=== PATIENT | male | born 1965 | race Caucasian/White ===

== ENCOUNTER → 2018-08-23 10:07 | Outpatient (CLI) | payer BC, SELFPAY ==
--- NOTE | 2018-08-23 10:13 | XR_ITS ---
XR chest 2V HISTORY: ITS.REASON: POSTERIOR THORACIC PAIN WITH BREATHING ORDERING PHYSICIAN: Karthik Ornelas PATIENT AGE: 53 years COMPARISON: None FINDINGS: The cardiomediastinal silhouette and pulmonary vascularity are within normal limits. There is an area of increased density overlying the inferior aspect of the T7 vertebral body. This is nonspecific and could be due to a a sclerotic lesion at T7 or due to overlying adjacent lung parenchymal pathology. CT of the chest with contrast may provide further evaluation. The remaining lungs are clear. IMPRESSION: 1. There is an area of increased density overlying the inferior aspect of the T7 vertebral body. This is nonspecific and could be due to a a sclerotic lesion at T7 or due to overlying adjacent lung parenchymal pathology. CT of the chest with contrast may provide further evaluation. 2. Otherwise negative chest
== END ==
PROVIDERS: PCP Internal Medicine; Visit Provider Internal Medicine
DX: R07.89 Other chest pain (principal); M54.6 Pain in thoracic spine
CPT/HCPCS: 71046

== ENCOUNTER → 2018-09-14 09:18 | Outpatient (CLI) | payer BC, SELFPAY ==
--- NOTE | 2018-09-14 09:20 | CT_ITS ---
CT chest w con HISTORY: Pain, abnormal chest x-ray, possible sclerotic lesion of T7 ITS.REASON: BACK PAIN ORDERING PHYSICIAN: Karthik Ornelas PATIENT AGE: 53 years COMPARISON: None Technique: Contrast Used:75ml Optiray 350 Axial images were obtained. Sagittal, and coronal reformatted images are also generated and reviewed. All CT scans at the facility use one or more dose reduction, viz: automated exposure control, ma/kV adjustment per patient size (including targeted exams where dose is matched to indication, i.e. head), or iterative reconstruction technique. FINDINGS: HEART: Unremarkable. Normal heart size. No significant pericardial effusion. MEDIASTINAL AND HILAR STRUCTURES: No mediastinal or hilar mass evident. No dominant adenopathy. PULMONARY ARTERIES: No pulmonary embolus evident. AORTA: No acute finding. No thoracic aortic aneurysm or dissection evident LUNGS: There is a 3 mm nodule along the right upper lobe posteriorly along the major fissure. There is some minimal nodularity in the subpleural region of the right lower lobe and left lower lobe nonspecific. A subpleural nodule is present in the left lower lobe at 6 mm. An additional subpleural nodules present in the left lower lobe at 4 mm. PLEURAL SPACES: No significant effusion. No evidence of pneumothorax. BONY STRUCTURES: No sclerotic lesions are evident. Specifically, there is no evidence of the sclerotic lesion at T7. There is mild hypertrophy of the costovertebral joint bilaterally at this level likely accounting for the radiographic appearance on the chest x-ray. LYMPH NODES: No enlarged lymph nodes evident UPPER ABDOMEN: There is a 16 mm left renal cyst ADDITIONAL FINDINGS: No other significant abnormalities IMPRESSION: No acute finding. There are a few scattered noncalcified pulmonary nodules the largest in the left lower lobe 6 mm. Consider 6-12 month follow-up. Mild hypertrophic change of the costovertebral joint at T7 likely accounting for the radiographic abnormality
== END ==
PROVIDERS: PCP Internal Medicine; Visit Provider Internal Medicine
DX: M54.5 Low back pain (principal)
CPT/HCPCS: 71260; Q9967

== ENCOUNTER → 2018-12-06 09:42 | Outpatient (CLI) | payer BC, SELFPAY ==
[2018-12-06 10:05] LABS: Basophils # 0.1 K/mm3 (0-0.2); Basophils % 1.4 % (0.1-2.0); Eosinophils # 0.4 K/mm3 (0.0-0.4); Eosinophils % 8.7 % (0.1-12.0); Hematocrit 44.7 % (42.0-52.0); Hemoglobin 15.3 g/dL (14.1-18.0); Lymphocytes # 1.7 K/mm3 (0.7-4.5); Lymphocytes % 34.2 % (10-50); Mean Corpuscular HGB Conc 34.2 g/dL (31.8-35.4); Mean Corpuscular Hemoglobin 31.5 pg (27.0-31.2); Mean Corpuscular Volume 92.2 fl (80-94); Monocytes # 0.2 K/mm3 (0.1-1.0); Monocytes % 4.3 % (1.7-9.3); Neutrophils # 2.6 K/mm3 (1.8-7.8); Neutrophils % 51.3 % (37.0-80.0); Platelet Count 247 K/mm3 (142-424); Red Blood Count 4.85 M/mm3 (4.60-6.20); Red Cell Distribution Width 12.7 % (11.5-17.5); White Blood Count 5.1 K/mm3 (4.8-10.8)
[2018-12-06 10:50] LABS: Alanine Aminotransferase 27 U/L (12-78); Albumin Level 3.9 gm/dL (3.4-5.0); Albumin/Globulin Ratio 1.3 (1.1-1.8); Alkaline Phosphatase 90 U/L (46-116); Anion Gap 12.9 mEq/L (5-15); Aspartate Amino Transferase 11 U/L (15-37); Bilirubin,Total 0.5 mg/dL (0.2-1.0); Blood Urea Nitrogen 9 mg/dL (7-18); Calcium 9.2 mg/dL (8.5-10.1); Carbon Dioxide 28 mmol/L (21.0-32.0); Chloride 106 mmol/L (98-107); Creatinine,Serum 0.85 mg/dL (0.70-1.30); Estimated Glomerular Filt Rate 94 ml/min (>60); GFR (African American) 114 ML/MIN (>60); Glucose 97 mg/dL (74-106); Potassium 3.9 mmoL/L (3.5-5.1); Sodium 143 mmol/L (136-145); Total Protein,Serum 6.9 gm/dL (6.4-8.2)
[2018-12-08 08:17] LABS: Deamidated Gliadin Abs, IgA 4 units (0-19); Deamidated Gliadin Abs, IgG 3 units (0-19); Endomysial IgA Antibody Negative (Negative); Tissue Transglutaminase IgA Ab <2 U/mL (0-3); Tissue Transglutaminase IgG Ab <2 U/mL (0-5)
[2018-12-08 08:25] LABS: Reticulin IgA Antibody Negative titer (Neg:<1:2.5)
[2018-12-09 11:01] LABS: Saccharomyces cerevisiae, IgA 36.2 Units (0.0-24.9); Saccharomyces cerevisiae, IgG 30.1 Units (0.0-24.9)
== END ==
PROVIDERS: Visit Provider Nurse Practitioner Family
DX: R19.4 Change in bowel habit (principal); R19.7 Diarrhea, unspecified; R10.84 Generalized abdominal pain
CPT/HCPCS: 36415; 80053; 83516; 85025; 86255; 86256; 86671

== ENCOUNTER → 2018-12-10 10:39 | Outpatient (CLI) | payer BC, SELFPAY ==
[2018-12-10 10:46] LABS: Adenovirus F 40/41, stool Not Detected (NotDetected); Astrovirus Not Detected (NotDetected); Campylobacter Not Detected (NotDetected); Clostridium Difficile A/B, PCR Not Detected (NotDetected); Cryptosporidium Not Detected (NotDetected); Cyclospora Cayetanesis Not Detected (NotDetected); Entamoeba histolytica Not Detected (NotDetected); Enteroaggregative E coli Not Detected (NotDetected); Enteropathogenic E coli Not Detected (NotDetected); Enterotoxigenic E coli Not Detected (NotDetected); Giardia lamblia Not Detected (NotDetected); Norovirus Not Detected (NotDetected); Plesimonas Shigalloides, PCR Not Detected (NotDetected); Rotavirus A Not Detected (NotDetected); Salmonella, PCR Not Detected (NotDetected); Sapovirus Not Detected (NotDetected); Shiga-like toxin E coli Not Detected (NotDetected); Shigella Enterovasive E coli Not Detected (NotDetected); Vibrio Cholerae Not Detected (NotDetected); Vibrio, PCR Not Detected (NotDetected); Yersinia Entercolitica, PCR Not Detected (NotDetected)
== END ==
PROVIDERS: Visit Provider Nurse Practitioner Family
DX: R19.4 Change in bowel habit (principal); R19.7 Diarrhea, unspecified; R10.84 Generalized abdominal pain
CPT/HCPCS: 87507

== ENCOUNTER → 2018-12-28 08:33 | Outpatient (CLI) | payer BC, SELFPAY ==
--- NOTE | 2018-12-28 08:40 | FL_ITS ---
PROCEDURE: FL SMALL BOWEL FOLLOW THROUGH CLINICAL INDICATION: DIARRHEA,ABD PAIN,N/V COMPARISON: No exams were available for comparison FINDINGS: Fluoroscopy time: 54 seconds. 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 Unremarkable appearing small bowel. No obstruction, mucosal abnormalities, or strictures evident. Spot views of the terminal ileum are unremarkable. There is normal transit time. IMPRESSION: Negative small bowel series Dictated by: Toan Brown MD 12/29/2018 15:24 Electronically signed by Toan Brown MD in [place] 12/29/2018 15:24
== END ==
PROVIDERS: PCP Internal Medicine; Visit Provider Nurse Practitioner Family
DX: R19.7 Diarrhea, unspecified (principal); R10.84 Generalized abdominal pain; R11.2 Nausea with vomiting, unspecified
CPT/HCPCS: 74250

== ENCOUNTER → 2019-01-03 14:08 | Outpatient (CLI) | payer BC, SELFPAY ==
--- NOTE | 2019-01-03 14:10 | US_ITS ---
PROCEDURE: US ABDOMEN COMPLETE CLINICAL INDICATION: EPIGASTRIC PAIN, N/V COMPARISON: CT ABDOMEN PELVIS WO CON from 11/16/2018 FINDINGS: PANCREAS: Unremarkable. No obvious mass or abnormal fluid collection. No ductal dilatation LIVER: No focal liver lesions demonstrated. Homogeneous echogenicity. No intrahepatic biliary ductal dilatation evident. There is appropriate direction of blood flow within a non dilated portal vein. Increased echogenicity of the liver consistent with hepatic steatosis RIGHT KIDNEY: Unremarkable. Normal size and echogenicity. No hydronephrosis LEFT KIDNEY: There is a small left renal cyst 14 mm. GALLBLADDER: Gallbladder sludge is present. No shadowing stones, gallbladder wall thickening, pericholecystic fluid, or biliary dilatation. Common bile duct is 3 mm. AORTA: No evidence of aneurysmal dilatation. SPLEEN: Unremarkable. Normal size and echogenicity ASCITES: None demonstrated. IMPRESSION: 1. Gallbladder sludge. No stones, wall thickening, or biliary dilatation. 2. Fatty liver. 3. Left renal cyst Dictated by: Toan Brown MD 01/03/2019 15:13 Electronically signed by Toan Brown MD in [facility] 01/03/2019 15:13
== END ==
PROVIDERS: PCP Internal Medicine; Visit Provider Internal Medicine
DX: R10.13 Epigastric pain (principal); R11.2 Nausea with vomiting, unspecified
CPT/HCPCS: 76700

== ENCOUNTER → 2019-01-11 10:05 | Outpatient (CLI) | payer BC, SELFPAY ==
--- NOTE | 2019-01-11 10:12 | NM_ITS ---
PROCEDURE: NM HEPATOBILIARY W PHARM CLINICAL INDICATION: RENAL CYST,EPIGASTRIC PAIN Epigastric pain COMPARISON: US ABDOMEN COMPLETE from 01/03/2019 TECHNIQUE: DOSE: 8.6 mCi technetium Choletec. 2 mcg of CCK. No pain reported with CCK infusion FINDINGS: Homogeneous activity is present within the hepatic parenchyma. Activity is present in the gallbladder by 15 minutes. Activity is present in the small bowel by 10 minutes. The gallbladder ejection fraction is calculated to be 81 percent. CCK-The patient did not report pain or other symptoms during CCK infusion. IMPRESSION: Unremarkable hepatobiliary scan with normal gallbladder ejection fraction Dictated by: Toan Brown MD 01/11/2019 20:29 Electronically signed by Toan Brown MD in [facility] 01/11/2019 20:29
--- NOTE | 2019-01-11 10:51 | HMH.ITSHM ---
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 []LISINOPRIL ACID RELUX MED ANXIETY MED
== END ==
PROVIDERS: PCP Internal Medicine; Visit Provider Internal Medicine
DX: R10.13 Epigastric pain (principal); R11.2 Nausea with vomiting, unspecified; N28.1 Cyst of kidney, acquired
CPT/HCPCS: 78227; A9537; J2805

== ENCOUNTER → 2019-01-31 08:43 | Outpatient (POV) | payer BC, SELFPAY | PROVIDERS: Visit Provider Nurse Practitioner Family | DX: Z00.00 Encounter for general adult medical examination without abnormal findings (principal) ==

== ENCOUNTER → 2019-07-25 15:20 | Outpatient (CLI) | payer BC, SELFPAY ==
--- NOTE | 2019-07-25 15:27 | XR_ITS ---
PROCEDURE: XR HIP LT 2-3V W/PELVIS CLINICAL INDICATION: LEFT HIP PAIN COMPARISON: No exams were available for comparison FINDINGS: There are mild osteoarthritic changes of both hips. There is faint subcortical lucency of the left femoral head which may be seen with avascular necrosis. MRI may provide further evaluation. No acute fracture or dislocation. IMPRESSION: Mild osteoarthritis of the left hip with possible avascular necrosis. Consider MRI further evaluation. Dictated by: Toan Brown MD 07/25/2019 15:53 Electronically signed by Toan Brown MD in [facility] 07/25/2019 15:53
== END ==
PROVIDERS: PCP Internal Medicine; Visit Provider Internal Medicine
DX: M25.552 Pain in left hip (principal)
CPT/HCPCS: 73502

== ENCOUNTER → 2020-04-30 13:47 | Outpatient (POV) | payer BC, SELFPAY | PROVIDERS: Visit Provider Nurse Practitioner Family | DX: Z00.00 Encounter for general adult medical examination without abnormal findings (principal) ==

== ENCOUNTER → 2020-08-30 10:37 | Outpatient (CLI) | payer BC, SELFPAY ==
[2020-08-30 11:34] LABS: Alanine Aminotransferase 28 U/L (12-78); Albumin Level 4.2 g/dl (3.5-5.0); Alkaline Phosphatase 80 U/L (38-126); Aspartate Amino Transferase 26 U/L (17-59); Bilirubin,Direct 0.4 mg/dl (0.0-0.4); Bilirubin,Indirect 0.2 mg/dL (0.0-0.9); Bilirubin,Total 0.6 mg/dl (0.2-1.3); Bilirubin,Unconjugated 0.2 mg/dL (0.0-1.1); Total Protein,Serum 6.9 g/dl (6.3-8.2)
== END ==
PROVIDERS: Visit Provider Nurse Practitioner
DX: B35.1 Tinea unguium (principal)
CPT/HCPCS: 36415; 80076

== ENCOUNTER → 2020-09-19 11:21 | Outpatient (CLI) | payer BC, SELFPAY ==
[2020-09-19 12:23] LABS: Blood Urea Nitrogen 10 mg/dl (9-20); Estimated Glomerular Filt Rate 100 ml/min (>60); GFR (African American) 121 ML/MIN (>60)
== END ==
PROVIDERS: Visit Provider Internal Medicine
DX: R91.1 Solitary pulmonary nodule (principal)
CPT/HCPCS: 36415; 82565; 84520

== ENCOUNTER → 2020-09-28 12:37 | Outpatient (CLI) | payer BC, SELFPAY ==
--- NOTE | 2020-09-28 12:45 | CT_ITS ---
PROCEDURE: CT CHEST W CON CLINCAL INDICATION: F/U LUNG NODULE COMPARISON: CT CT CHEST W CON from 09/14/2018 TECHNIQUE: IV Contrast: 75ml Isovue 370 Axial images obtained with sagittal and coronal reformats. All CT scans at the facility use one or more dose reduction, viz: automated exposure control, ma/kV adjustment per patient size (including targeted exams where dose is matched to indication, i.e. head), or iterative reconstruction technique. FINDINGS: HEART AND MEDIASTINAL STRUCTURES: No mediastinal or hilar mass. No adenopathy. No evidence of aortic aneurysm, dissection, or central pulmonary embolus. Small left hilar lymph node is stable. LUNGS AND PLEURAL SPACES: No change subpleural 6 mm and 4 mm subpleural nodules in the left lower lobe. No new nodules evident. BONY STRUCTURES: No acute bony abnormalities apparent. UPPER ABDOMEN: Unremarkable. ADDITIONAL FINDINGS: Stable 14 mm cyst in the upper pole of the left kidney. IMPRESSION: No change small lower upper lobe pulmonary nodules No acute finding Dictated by: Toan Brown MD 10/01/2020 10:58 Toan Brown MD in [place] 10/01/2020 10:58
== END ==
PROVIDERS: PCP Internal Medicine; Visit Provider Internal Medicine
DX: R91.1 Solitary pulmonary nodule (principal)
CPT/HCPCS: 71260; Q9967

== ENCOUNTER → 2020-10-29 10:57 | Outpatient (POV) | payer BC, SELFPAY | PROVIDERS: Visit Provider Nurse Practitioner Family | DX: Z00.00 Encounter for general adult medical examination without abnormal findings (principal) ==

== ENCOUNTER → 2021-03-05 15:11 | Outpatient (CLI) | payer BC, SELFPAY | PROVIDERS: Visit Provider Nurse Practitioner | DX: Z20.822 Contact with and (suspected) exposure to COVID-19 (principal) | CPT/HCPCS: C9803; U0003; U0005 ==

== ENCOUNTER → 2021-03-12 16:05 | Outpatient (CLI) | payer BC, SELFPAY | PROVIDERS: PCP Internal Medicine; Visit Provider Nurse Practitioner | DX: Z20.822 Contact with and (suspected) exposure to COVID-19 (principal) | CPT/HCPCS: C9803; U0003; U0005 ==

== ENCOUNTER → 2021-12-12 08:41 | Outpatient (CLI) | payer BC, MEDICARE, SELFPAY ==
[2021-12-12 09:14] LABS: Basophils # 0.1 K/mm3 (0-0.2); Basophils % 1.6 % (0.1-2.0); Eosinophils # 0.7 K/mm3 (0.0-0.4); Eosinophils % 11.9 % (0.1-12.0); Hematocrit 43.1 % (42.0-52.0); Hemoglobin 14.9 g/dL (14.1-18.0); Lymphocytes # 2.1 K/mm3 (0.7-4.5); Lymphocytes % 36.1 % (10-50); Mean Corpuscular HGB Conc 34.6 g/dL (31.8-35.4); Mean Corpuscular Hemoglobin 32.1 pg (27.0-31.2); Mean Corpuscular Volume 92.7 fl (80-94); Mean Platelet Volume 8.4 fl (7.4-10.4); Monocytes # 0.2 K/mm3 (0.1-1.0); Neutrophils # 2.8 K/mm3 (1.8-7.8); Neutrophils % 46.4 % (37.0-80.0); Platelet Count 277 K/mm3 (142-424); Red Blood Count 4.65 M/mm3 (4.60-6.20); Red Cell Distribution Width 13.1 % (11.5-17.5); White Blood Count 5.9 K/mm3 (4.8-10.8)
[2021-12-12 09:30] LABS: Alanine Aminotransferase 22 U/L (12-78); Albumin/Globulin Ratio 1.7 (1.1-1.8); Alkaline Phosphatase 96 U/L (38-126); Aspartate Amino Transferase 24 U/L (17-59); Bilirubin,Total 0.5 mg/dl (0.2-1.3); Blood Urea Nitrogen 10 mg/dl (9-20); Calcium 8.8 mg/dl (8.4-10.2); Carbon Dioxide 29 mmol/L (22.0-30.0); Chloride 105 mmol/L (98-107); Chol/HDL Ratio 4.8 (1-3.5); Cholesterol 174 mg/dl (140-200); Estimated Glomerular Filt Rate 87 ml/min (>60); GFR (African American) 105 ML/MIN (>60); Globulin 2.4 g/dL (1.3-3.2); Glucose 96 mg/dl (74-100); HDL Cholesterol 36 mg/dl (40-60); Sodium 142 mmol/L (136-145); Total Protein,Serum 6.4 g/dl (6.3-8.2); Triglycerides 82 mg/dl (30-150); VLDL Cholesterol 16 mg/dL (0-40)
[2021-12-12 09:41] LABS: Direct LDL Cholesterol 116.68 mg/dL (100-129)
[2021-12-12 10:01] LABS: Prostate Specific Ag Screen 1.5 ng/ml (0.0-4.0); Thyroid Stimulating Hormone 2.22 uIU/mL (0.465-4.68)
[2021-12-12 10:11] LABS: Erythrocyte Sedimentation Rate 12 mm/hr (0-20)
[2021-12-12 10:29] LABS: Anion Gap 12.1 mEq/L (5-15)
[2021-12-12 10:36] LABS: Vitamin B12 476 pg/mL (239-931)
[2021-12-12 10:38] LABS: Free T4 (Free Thyroxine) 0.78 ng/dl (0.78-2.19)
[2021-12-12 11:21] LABS: Potassium 4.1 mmoL/L (3.5-5.1)
== END ==
PROVIDERS: PCP Internal Medicine; Visit Provider Internal Medicine
DX: I10 Essential (primary) hypertension (principal); E78.5 Hyperlipidemia, unspecified; M54.6 Pain in thoracic spine; R20.2 Paresthesia of skin; N40.1 Benign prostatic hyperplasia with lower urinary tract symptoms; Z12.5 Encounter for screening for malignant neoplasm of prostate
CPT/HCPCS: 36415; 80053; 80061; 82607; 82746; 84439; 84443; 85025; 85651; G0103

== ENCOUNTER 2022-03-07 16:11 | Emergency (ER) | payer BC, SELFPAY ==
[2022-03-07 16:25] VITALS: BP 146/92; PULSE 101; RESP 19; TEMP 36.9; O2SAT 98; BMI 27.2
--- NOTE | 2022-03-07 16:36 | EXP.UTC ---
Discharge Plan Disposition Patient Disposition: Home, Self-Care Condition: Good Prescriptions Prescriptions: New prednisone [prednisone] 20 mg tablet 20 mg PO BID 5 Days Qty: 10 0RF benzonatate 100 mg capsule 100 mg PO TID PRN (Reason: cough) Qty: 30 0RF amoxicillin-pot clavulanate 875-125 mg Tablet 1 tab PO Q12H Qty: 20 0RF guaifenesin [Mucinex] 600 mg tablet extended release 12hr 600 mg PO BID PRN (Reason: cough) Qty: 20 0RF No Action lisinopril 20 tablet 20 mg PO DAILY pantoprazole 40 MG tablet,delayed release (DR/EC) 40 mg PO DAILY albuterol sulfate [ProAir HFA] 108 HFA aerosol inhaler 108 mcg inhalation DAILY duloxetine 30 MG capsule,delayed release(DR/EC) 30 mg PO DAILY Referrals Follow up/Referrals: Karthik Ornelas MD [Primary Care Provider] - See instructions Activity Restrictions/Add. Instructions Additional Instructions/Restrictions: Start antibiotic today. Be sure to complete entire prescription even if feeling better Monitor temp. Tylenol every 4 hours as needed and / or ibuprofen every 6 hours as needed ( As long as your primary care physician has told you that it ok to take both. For fever/aches/pains ER if no less than 101 despite Tylenol or Motrin Humidifier/vaporizer or hot steamy shower Inhaler every 4-6 hours as needed like we discussed. If unsure how to use it, ask pharmacist to demonstrate how. Should help open airways and improve cough, wheezing, and shortness of breath Mucinex during the day for your cough and cough suppressant only at night. Be sure to drink lots of water. *Tessalon Perles will not cause drowsiness but use at bedtime to help stop cough so that you may get some rest. *Start steroid today. Helps with inflammation therefore, cough and wheezing. Follow directions on the package. Reviewed side effects. Patient reports taking them before. Follow up IMMEDIATELY for new or worsening of symptoms OR no noticeable improvement over the next 48-72 hours. 911 immediately for any life threatening symptoms such as chest pain or difficulty breathing Clinical Impressions Clinical Impression: Sinusitis, Bronchitis Stand Alone Forms Stand Alone Forms: Work/School Release Instructions Patient Instructions: DI for Sinusitis, DI for Acute Bronchitis, Cough Discharge ED Provider: Geeta EppsH UTC HPI General Stated complaint: cough MO Time Seen by Provider: 03/07/22 16:36 History of Present Illness Provider Complaint: Patient states that he has been having cough, headache head and chest congestion that has continued to get worse States that today his cough was getting worse so he came in to get checked Related Data Home Medications Medication Instructions Recorded Confirmed albuterol sulfate 90 mcg/actuation 108 mcg inhalation DAILY Asthma 06/11/17 02/04/19 aerosol inhaler (ProAir HFA) duloxetine 30 mg capsule,delayed 30 mg PO DAILY Anxiety 06/11/17 02/04/19 release lisinopril 20 mg tablet 20 mg PO DAILY Hypertension 06/11/17 03/07/22 pantoprazole 40 mg tablet,delayed 40 mg PO DAILY STOMACH 06/11/17 02/04/19 release Previous Rx's Medication Instructions Recorded amoxicillin 875 mg-potassium 1 tab PO Q12H #20 tabs 03/07/22 clavulanate 125 mg tablet benzonatate 100 mg capsule 100 mg PO TID PRN cough #30 caps 03/07/22 guaifenesin 600 mg tablet, 600 mg PO BID PRN cough #20 tabs 03/07/22 extended release 12 hr (Mucinex) prednisone 20 mg tablet 20 mg PO BID 5 days #10 tabs 03/07/22 Allergies Allergy/AdvReac Type Severity Reaction Status Date / Time morphine Allergy Nausea Verified 02/04/19 12:09 [facility] Disclaimer: The information contained in this section may have been updated after the patient was seen, as this information can be updated by other users. Medical History (Updated 03/07/22 @ 16:49 by Geeta Epps APRN) History of gastroe
[2022-03-07 16:47] VITALS: BP 146/92; PULSE 101; RESP 19; TEMP 36.9; O2SAT 98
== END 2022-03-07 16:50 | disposition home or self-care (01) ==
PROVIDERS: Emergency Provider Nurse Practitioner; PCP Internal Medicine
DX: J32.9 Chronic sinusitis, unspecified (principal); J40 Bronchitis, not specified as acute or chronic
CPT/HCPCS: 99212; 99214; G0463

== ENCOUNTER → 2022-04-28 10:25 | Outpatient (CLI) | payer BC, SELFPAY ==
--- NOTE | 2022-04-28 10:32 | XR_ITS ---
FINAL REPORT CLINICAL HISTORY: FEVER,COUGH COMPARISON: 09/28/2020 FINDINGS: 2 views of the chest were obtained . The heart is normal in size. The mediastinum is within normal limits. The lungs are clear. There is no pneumothorax. Osseous structures are unremarkable. IMPRESSION: No acute cardiopulmonary process. Reviewed, Interpreted and Dictated by Roberto Ramos III, MD Transcribed by Ame Lowry Authenticated and [facility]
== END ==
PROVIDERS: PCP Internal Medicine; Visit Provider Internal Medicine
DX: R50.9 Fever, unspecified (principal); R05.1 Acute cough
CPT/HCPCS: 71046

== ENCOUNTER → 2022-08-01 11:24 | Outpatient (CLI) | payer BC, SELFPAY ==
[2022-08-01 12:38] LABS: Alanine Aminotransferase 27 U/L (12-78); Albumin Level 4.3 g/dl (3.5-5.0); Albumin/Globulin Ratio 1.7 (1.1-1.8); Alkaline Phosphatase 75 U/L (38-126); Anion Gap 12.8 mEq/L (5-15); Aspartate Amino Transferase 28 U/L (17-59); Bilirubin,Total 0.6 mg/dl (0.2-1.3); Blood Urea Nitrogen 12 mg/dl (9-20); Calcium 9.2 mg/dl (8.4-10.2); Carbon Dioxide 27 mmol/L (22.0-30.0); Chloride 107 mmol/L (98-107); Estimated Glomerular Filt Rate 99 ml/min (>60); GFR (African American) 120 ML/MIN (>60); Globulin 2.6 g/dL (1.3-3.2); Glucose 102 mg/dl (74-100); Potassium 3.8 mmoL/L (3.5-5.1); Sodium 143 mmol/L (136-145); Total Protein,Serum 6.9 g/dl (6.3-8.2)
== END ==
PROVIDERS: PCP Internal Medicine; Visit Provider Physician Assistant
DX: Z79.899 Other long term (current) drug therapy (principal); B35.1 Tinea unguium
CPT/HCPCS: 36415; 80053

== ENCOUNTER → 2023-01-07 09:18 | Outpatient (CLI) | payer BC, SELFPAY ==
[2023-01-07 09:35] LABS: Basophils # 0.1 K/mm3 (0-0.2); Basophils % 0.6 % (0.1-2.0); Eosinophils # 0.6 K/mm3 (0.0-0.4); Eosinophils % 6.5 % (0.1-12.0); Hematocrit 41.5 % (42.0-52.0); Hemoglobin 14.4 g/dL (14.1-18.0); Lymphocytes # 2.3 K/mm3 (0.7-4.5); Lymphocytes % 26.8 % (10-50); Mean Corpuscular HGB Conc 34.7 g/dL (31.8-35.4); Mean Corpuscular Hemoglobin 32.5 pg (27.0-31.2); Mean Corpuscular Volume 93.6 fl (80-94); Mean Platelet Volume 8.1 fl (7.4-10.4); Monocytes # 0.4 K/mm3 (0.1-1.0); Monocytes % 4.8 % (1.7-9.3); Neutrophils # 5.2 K/mm3 (1.8-7.8); Neutrophils % 61.4 % (37.0-80.0); Platelet Count 240 K/mm3 (142-424); Red Blood Count 4.44 M/mm3 (4.60-6.20); Red Cell Distribution Width 13.1 % (11.5-17.5); White Blood Count 8.5 K/mm3 (4.8-10.8)
[2023-01-07 10:20] LABS: Alanine Aminotransferase 29 U/L (12-78); Albumin Level 4.2 g/dl (3.5-5.0); Albumin/Globulin Ratio 1.5 (1.1-1.8); Alkaline Phosphatase 105 U/L (38-126); Aspartate Amino Transferase 31 U/L (17-59); Bilirubin,Total 0.7 mg/dl (0.2-1.3); Blood Urea Nitrogen 9 mg/dl (9-20); Calcium 8.5 mg/dl (8.4-10.2); Carbon Dioxide 28 mmol/L (22.0-30.0); Chloride 104 mmol/L (98-107); Chol/HDL Ratio 5.3 (1-3.5); Cholesterol 175 mg/dl (140-200); Estimated Glomerular Filt Rate 99 ml/min (>60); GFR (African American) 120 ML/MIN (>60); Globulin 2.8 g/dL (1.3-3.2); Glucose 90 mg/dl (74-100); HDL Cholesterol 33 mg/dl (40-60); Sodium 139 mmol/L (136-145); Triglycerides 93 mg/dl (30-150); VLDL Cholesterol 19 mg/dL (0-40)
[2023-01-07 10:31] LABS: Direct LDL Cholesterol 120.92 mg/dL (100-129)
[2023-01-07 10:49] LABS: Prostate Specific Ag Screen 1.7 ng/ml (0.0-4.0)
== END ==
PROVIDERS: PCP Internal Medicine; Visit Provider Internal Medicine
DX: I10 Essential (primary) hypertension (principal); E78.5 Hyperlipidemia, unspecified; Z12.5 Encounter for screening for malignant neoplasm of prostate
CPT/HCPCS: 36415; 80053; 80061; 85025; G0103

== ENCOUNTER 2023-05-28 21:44 | Emergency (ER) | payer BC, SELFPAY ==
[2023-05-28] VITALS (7 sets, daily range): BP systolic 124–149; BP diastolic 79–91; PULSE 62–73; RESP 13–21; TEMP 36–36.6; O2SAT 97–100; BMI 29.2
--- NOTE | 2023-05-28 21:51 | ECG_ITS ---
APPROVED REPORT Exam: Resting ECG HR:69 bpm ECG Measurements Heart Rate 69 AXES NM 155 P 53 QRSd 98 QRS -46 QT 417 T -4 QTc 436 Conclusion SINUS RHYTHM WITH OCCASIONAL VENTRICULAR PREMATURE COMPLEXES No STEMI -Luisana De Leon MD Electronically signed by : LUISANA DE LEON, 05/28/2023 23:42:28
[2023-05-28] MEDS: LACTATED RINGERS 1000ML 1,000 ML 999 ML IV ×2 (22:09→23:22)
--- NOTE | 2023-05-28 22:13 | CT_ITS ---
PROCEDURE INFORMATION: Exam: CT Abdomen And Pelvis With Contrast Exam date and time: 05/28/2023 10:45 PM Age: 57 years old Clinical indication: Abdominal pain TECHNIQUE: Imaging protocol: Computed tomography of the abdomen and pelvis with contrast. Radiation optimization: All CT scans at this facility use at least one of these dose optimization techniques: automated exposure control; mA and/or kV adjustment per patient size (includes targeted exams where dose is matched to clinical indication); or iterative reconstruction. Contrast material: ISOVUE; Contrast volume: 75 ml; Contrast route: IV; COMPARISON: CT ABDOMEN PELVIS WO CON 11/16/2018 6:28 PM FINDINGS: Liver: Fatty liver infiltration. Gallbladder and bile ducts: Normal. No calcified stones. No ductal dilation. Pancreas: Normal. No ductal dilation. Spleen: Normal. No splenomegaly. Adrenal glands: Normal. No mass. Kidneys and ureters: 1.9 cm left renal cyst. Otherwise, unremarkable kidneys. Stomach and bowel: Unremarkable. No obstruction. No mucosal thickening. Appendix: No evidence of appendicitis. Intraperitoneal space: Unremarkable. No free air. No significant fluid collection. Vasculature: Unremarkable. No abdominal aortic aneurysm. Lymph nodes: Unremarkable. No enlarged lymph nodes. Urinary bladder: Unremarkable as visualized. Reproductive: Unremarkable as visualized. Bones/joints: Vacuum disc degenerative changes of L5/S1 spine. No acute osseous findings. Soft tissues: Unremarkable. IMPRESSION: 1. No acute findings. 2. Fatty liver infiltration. COMMENTS: Consistent with the [employer]'s Incidental Findings Committee white paper (J Am Dixie Radiol 2018): Any incidental renal lesion less than 1 cm or classified as too small to characterize, or any incidental cystic renal lesion characterized as simple-appearing, is likely benign. No follow-up imaging is recommended for these lesions per consensus recommendations based on imaging criteria.
--- NOTE | 2023-05-28 22:20 | ED_ITS ---
Discharge Plan Disposition Patient Disposition: Home, Self-Care Prescriptions Prescriptions: No Action lisinopril 20 tablet 20 mg PO DAILY pantoprazole 40 MG tablet,delayed release (DR/EC) 40 mg PO DAILY albuterol sulfate [ProAir HFA] 108 HFA aerosol inhaler 108 mcg inhalation DAILY duloxetine 30 MG capsule,delayed release(DR/EC) 30 mg PO DAILY prednisone [prednisone] 20 mg tablet 20 mg PO BID 5 Days Qty: 10 0RF benzonatate 100 mg capsule 100 mg PO TID PRN (Reason: cough) Qty: 30 0RF amoxicillin-pot clavulanate 875-125 mg Tablet 1 tab PO Q12H Qty: 20 0RF guaifenesin [Mucinex] 600 mg tablet extended release 12hr 600 mg PO BID PRN (Reason: cough) Qty: 20 0RF Referrals Follow up/Referrals: Karthik Ornelas MD [Primary Care Provider] - See instructions Activity Restrictions/Add. Instructions Additional Instructions/Restrictions: Please follow-up with your primary care provider. Please return to the emergency department if you develop any new or worsening symptoms or become concerned for your health. Please take Benadryl as needed for rash. Clinical Impressions Clinical Impression: Urticaria, Vomiting Abdominal pain Qualifiers: Abdominal location: generalized Qualified Code(s): R10.84 - Generalized abdominal pain Instructions Patient Instructions: DI for Acute Abdominal Pain Discharge ED Provider: Elvin Mooney General Adult HPI <Luisana De Leon MD - Last Filed: 05/28/23 23:31> General Chief complaint: Abdominal Pain Stated complaint: vomiting, diarrhea tingly arms Time Seen by Provider: 05/28/23 22:07 Mode of Arrival: Wheelchair Source of Information: Patient and Spouse Limitations: Physical Limitations Description of Symptoms (Recalled from ER Triage Doc. by RN): Pt presents to ED for abd pain and N/V/D. Pt has experienced this before and have several tests done to try and get a diagnoses. Pt was weak and unable to exit wheelchair on his own. This RN was unable to obtain an oral or axillary temp on patient. Pt was cool to the touch. Rectal temp was 96.8 Pt was able to answer most questions. Pt was moved from Room 7 to Room 2. History of Present Illness HPI narrative: 57-year-old male with previous medical history of enteritis, gastritis, chronic diarrhea, chronic back pain, presents with sudden onset generalized cramping abdominal pain, generalized weakness, and hypothermia. Patient was sitting at home in his usual state of health when he began to have severe generalized abdominal pain. He often has bouts of abdominal pain and vomiting that caused him to double over in pain however during this episode he became profoundly weak and tremulous and wanted to come to the emergency department. Today he did have approximately 10 episodes of diarrhea however patient and his states that is not uncommon for him. He has had this episodic abdominal pain worked up by GI with a scope as recently as 2018 but at that time the only diagnosis found was reactive gastropathy. He denies fevers but says he did have severe cold sweats when the abdominal pain and vomiting began. Related Data Home Medications Medication Instructions Recorded Confirmed albuterol sulfate 90 mcg/actuation 108 mcg inhalation DAILY Asthma 06/11/17 02/04/19 aerosol inhaler (ProAir HFA) duloxetine 30 mg capsule,delayed 30 mg PO DAILY Anxiety 06/11/17 02/04/19 release lisinopril 20 mg tablet 20 mg PO DAILY Hypertension 06/11/17 03/07/22 pantoprazole 40 mg tablet,delayed 40 mg PO DAILY STOMACH 06/11/17 02/04/19 release Previous Rx's Medication Instructions Recorded amoxicillin 875 mg-potassium 1 tab PO Q12H #20 tabs 03/07/22 clavulanate 125 mg tablet benzonatate 100 mg capsule 100 mg PO TID PRN cough #30 caps 03/07/22 guaifenesin 600 mg tablet, 600 mg PO BID PRN cough #20 tabs 03/07/22 extended release 12 hr (Mucinex) prednisone 20 mg tablet 20 mg PO BID 5 days #10 tabs 03/07/22 Allergies Allergy/AdvReac Type Severity Reaction Status Date / Time morphine Allergy Nausea Verified 02/04/19 12:09 [facility] <Luisana De Leon MD - Last Filed: 05/28/23 23:31> [facility] Disclaimer: The information contained in this section may have been updated after the patient was seen, as this information can be updated by other users. Medical History History of gastroesophageal reflux (GERD) Hypertension Surgical History History of tonsillectomy Social History Smoking Status: Never smoker alcohol intake: never substance use type: denies use current occupational status: retired Travel in the last 8 weeks: None household members: spouse and family housing: house current occupational exposures/hazards: No caffeine: Yes <Luisana De Leon MD - Last Filed: 05/28/23 23:31> ROS Obtained: Yes All systems reviewed & no additional complaints except as documented Physical Exam <Luisana De Leon MD - Last Filed: 05/28/23 23:31> General General appearance: lethargic and other (Tremulous. Lethargic but awake and oriented and conversant.) Head Head exam: atraumatic, normocephalic and normal inspection Eye Eye exam: Present normal appearance, PERRL and EOMI ENT ENT exam: Present normal exam, normal oropharynx and mucous membranes moist Neck Neck exam: Present normal inspection and full ROM; Absent meningismus or lymphadenopathy Chest Chest inspection: Present normal inspection and symmetric chest wall rise; Absent tenderness Respiratory Respiratory exam: Present normal lung sounds bilaterally; Absent respiratory distress Cardiovascular Cardiovascular exam: Present regular rate and normal rhythm; Absent tachycardia, irregular rhythm or JVD Abdominal Exam Abdominal exam: Present soft; Absent distention, tenderness, guarding or rigidity Extremities Exam Extremities exam: Present normal inspection, full ROM and normal capillary refill; Absent calf tenderness Back Exam Back exam: Present normal inspection; Absent tenderness Neurological Exam Neurological exam: Present alert and oriented X3 Psychiatric Psychiatric exam: Present normal affect and normal mood Skin Skin exam: Present warm, dry, intact and normal color Lymphatic Lymphatic Findings: no adenopathy Medical Decision Making <Luisana De Leon MD - Last Filed: 05/28/23 23:31> Medical Records Medical records reviewed: Yes I reviewed the patient's medical records. MR Comment: Reviewed history including EGD note from 2019. Ken Inquiry Pt receiving controlled substance: No Ken was queried for this patient: No Vital Signs: 05/28/23 21:45 05/28/23 22:00 05/28/23 22:30 Temperature 96.8 F L Temperature Source Rectal Pulse Rate 62 Pulse Rate [Left] 68 Respiratory Rate 18 17 13 Blood Pressure 134/87 124/80 Blood Pressure [Right Arm] 132/86 Blood Pressure Mean Blood Pressure Mean [Right Arm] 101 02 Sat by Pulse Oximetry 100 99 Oxygen Delivery Method Room Air 05/28/23 23:00 05/28/23 23:15 05/28/23 23:31 Temperature 97.8 F Temperature Source Oral Pulse Rate 73 72 63 Pulse Rate [Left] Respiratory Rate 17 21 20 Blood Pressure 139/87 149/91 H 145/79 H Blood Pressure [Right Arm] Blood Pressure Mean 105 100 93 Blood Pressure Mean [Right Arm] 02 Sat by Pulse Oximetry 97 99 100 Oxygen Delivery Method 05/28/23 23:54 05/29/23 00:00 05/29/23 00:16 Temperature Temperature Source Pulse Rate 63 Pulse Rate [Left] Respiratory Rate 8 L 12 Blood Pressure 138/79 129/79 Blood Pressure [Right Arm] Blood Pressure Mean 103 102 Blood Pressure Mean [Right Arm] 02 Sat by Pulse Oximetry 91 L 91 L Oxygen Delivery Method 05/29/23 00:16 05/29/23 01:45 05/29/23 01:45 Temperature 97.9 F Temperature Source Oral Pulse Rate 80 96 H 85 Pulse Rate [Left] Respiratory Rate 19 12 17 Blood Pressure 126/86 126/86 Blood Pressure [Right Arm] Blood Pressure Mean 89 Blood Pressure Mean [Right Arm] 02 Sat by Pulse Oximetry 96 94 L 95 Oxygen Delivery Method Room Air 05/29/23 02:00 05/29/23 02:33 Temperature 98.3 F Temperature Source Oral Pulse Rate 84 74 Pulse Rate [Left] Respiratory Rate 16 14 Blood Pressure 133/84 126/78 Blood Pressure [Right Arm] Blood Pressure Mean 90 Blood Pressure Mean [Right Arm] 02 Sat by Pulse Oximetry 96 Oxygen Delivery Method Room Air Room Air Lab Data Lab Results 05/28/23 21:51: WBC 15.2 H, RBC 5.11, Hgb 16.5, Hct 47.7, MCV 93.3, MCH 32.3 H, MCHC 34.6, RDW 13.0, Plt Count 331, MPV 7.8, Neut % (Auto) 73.8, Lymph % (Auto) 19.9, [place] % (Auto) 3.8, Eos % (Auto) 1.8, Baso % (Auto) 0.7, Neut # (Auto) 11.2 H, Lymph # (Auto) 3.0, [place] # (Auto) 0.6, Eos # (Auto) 0.3, Baso # (Auto) 0.1, Total Counted 100, Neutrophils % (Manual) 77 H, Lymphocytes % (Manual) 19, Monocytes % (Manual) 2, Eosinophils % (Manual) 2, Platelet Estimate Normal, RBC Morphology Normal, Sodium 136, Potassium 3.1 L, Chloride 106, Carbon Dioxide 21 L, Anion Gap 12.1, BUN 14, Creatinine 0.80, Estimated Creat Clear 139, Estimated GFR 99, Est GFR ( Amer) 120, Glucose 119 H, Calcium 9.7, Total Bilirubin 1.0, AST 38, ALT 39, Alkaline Phosphatase 101, Total Protein 7.8, Albumin 4.5, G lobulin 3.3 H, Albumin/Globulin Ratio 1.4, Lipase 120 05/28/23 22:14: VBG Lactic Acid 3.2 H 05/29/23 01:53: Lactate 1.0 05/28/23 21:51 05/28/23 21:51 Orders (Tests/Meds): ED MEDICATIONS Discontinued Medications Generic Name Dose Route Start Last Admin Trade Name Freq PRN Reason Stop Dose Admin Acetaminophen 1,000 mg 05/28/23 22:13 05/28/23 23:02 Acetaminophen 500mg Tab PO 05/28/23 22:14 1,000 mg ONCE ONE Administration Belladonna Alkaloids 60 ml 05/28/23 23:25 05/28/23 23:36 Belladonna Alkaloids 60 Ml Ml PO 05/28/23 23:26 60 ml ONCE ONE Administration Diphenhydramine HCl 25 mg 05/29/23 00:49 05/29/23 00:52 Diphenhydramine 50mg/Ml Vial IV 05/29/23 00:50 25 mg ONCE ONE Administration Droperidol 2.5 mg 05/28/23 23:31 05/28/23 23:38 Droperidol 5mg/2ml Vial IV 05/28/23 23:32 2.5 mg ONCE ONE Administration Lactated Ringer's 1,000 mls @ 999 mls/hr 05/28/23 22:07 05/28/23 22:09 Lactated Ringer's 1000 Ml Bag IV 05/28/23 23:07 999 mls/hr .Q1H1M ONE Administration Lactated Ringer's 1,000 mls @ 999 mls/hr 05/28/23 23:18 05/28/23 23:22 Lactated Ringer's 1000 Ml Bag IV 05/29/23 00:18 999 mls/hr .Q1H1M ONE Administration Potassium Chloride/Water 100 mls @ 100 mls/hr 05/28/23 23:30 05/29/23 01:47 Potassium Chloride 10meq/100ml Ivpb IV 05/29/23 02:29 Not Given Q1H ARPIT Iopamidol 75 ml 05/28/23 22:53 05/28/23 22:54 Iopamidol-370 (76%);100ml Bottle IV 05/28/23 22:54 75 ml ONCE ONE Administration Ondansetron HCl 4 mg 05/28/23 22:13 05/28/23 22:34 Ondansetron 4mg/2ml Vial IV 05/28/23 22:14 4 mg ONCE ONE Administration Sodium Chloride 10 ml 05/28/23 22:53 05/28/23 22:54 Sodium Chloride 0.9% 10ml Syr (Rad Only) IV 06/27/23 22:52 10 ml NEEDED PRN Administration Maintain IV Site ORDERS Category Date Time Status CT abdomen pelvis w con Stat Cat Scan 05/28/23 22:13 Completed CBC [Complete Blood Count Auto Diff] Stat Lab 05/28/23 21:51 Completed CMP [Comprehensive Metabolic Panel] Stat Lab 05/28/23 21:51 Completed Lactate Venous Stat Lab 05/28/23 22:14 Completed Lactic Acid Follow Up (RFLX 1) Stat Lab 05/29/23 01:53 Completed Lipase Stat Lab 05/28/23 21:51 Completed Blood Culture Stat Micro 05/28/23 23:08 Received ECG Data Tracing #1: I reviewed this ECG and interpreted as documented below: ECG initial impression date: 05/28/23 ECG initial impression time: 21:54 ECG normal with no acute: arrhythmias, ischemia, conduction abnormalities, chamber hypertrophy Arrhythmias present: PVC's Medical Decision Narrative: Immediately upon arrival patient was found to be weak and lethargic. Vitals were concerning for hypothermia to 96 ?F rectally so patient was transferred to a critical care room. During that process he was unable to stand due to generalized weakness. He also had vomiting, severe generalized abdominal pain, so presentation is concerning for sepsis, possibly from intra-abdominal source such as UTI, diverticulitis, intussusception, appendicitis, among others. For this reason obtained CT abdomen pelvis with IV contrast, labs, and provided LR bolus and active rewarming with bear hugger. On reassessment, patient's comfort, nausea, and hypothermia had improved. Labs independently reviewed and interpreted showed mild leukocytosis, mild lactic acidosis with lactate of 3.2, mild hypokalemia which I repleted, normal LFTs and lipase, no significant abnormalities to explain his abdominal discomfort. CT I independently reviewed and interpreted showed no emergent causes of his abdominal pain, no bowel obstruction or volvulus or cholecystitis or cholelithiasis, no overt signs of mesenteric ischemia though arterial phase is limited. No sources of an intra- abdominal infection or other emergent causes of abdominal pain on my read, however advised the oncoming physician to wait for the radiologist read given patient's concerning clinical presentation when he first arrived. At time of transition of care it is not clear what caused patient's abdominal pain, vomiting, generalized weakness, hypothermia. Discussed with oncoming provider that at this time his symptoms are not controlled well enough to discharge however it is possible the symptoms may be a manifestation of his recurrent episodic abdominal pain and vomiting or an intra-abdominal emergency that the radiologist may identify on CT. <Elvin Mooney MD - Last Filed: 05/29/23 03:01> Vital Signs: 05/28/23 21:45 05/28/23 22:00 05/28/23 22:30 Temperature 96.8 F L Temperature Source Rectal Pulse Rate 62 Pulse Rate [Left] 68 Respiratory Rate 18 17 13 Blood Pressure 134/87 124/80 Blood Pressure [Right Arm] 132/86 Blood Pressure Mean Blood Pressure Mean [Right Arm] 101 02 Sat by Pulse Oximetry 100 99 Oxygen Delivery Method Room Air 05/28/23 23:00 05/28/23 23:15 05/28/23 23:31 Temperature 97.8 F Temperature Source Oral Pulse Rate 73 72 63 Pulse Rate [Left] Respiratory Rate 17 21 20 Blood Pressure 139/87 149/91 H 145/79 H Blood Pressure [Right Arm] Blood Pressure Mean 105 100 93 Blood Pressure Mean [Right Arm] 02 Sat by Pulse Oximetry 97 99 100 Oxygen Delivery Method 05/28/23 23:54 05/29/23 00:00 05/29/23 00:16 Temperature Temperature Source Pulse Rate 63 Pulse Rate [Left] Respiratory Rate 8 L 12 Blood Pressure 138/79 129/79 Blood Pressure [Right Arm] Blood Pressure Mean 103 102 Blood Pressure Mean [Right Arm] 02 Sat by Pulse Oximetry 91 L 91 L Oxygen Delivery Method 05/29/23 00:16 05/29/23 01:45 05/29/23 01:45 Temperature 97.9 F Temperature Source Oral Pulse Rate 80 96 H 85 Pulse Rate [Left] Respiratory Rate 19 12 17 Blood Pressure 126/86 126/86 Blood Pressure [Right Arm] Blood Pressure Mean 89 Blood Pressure Mean [Right Arm] 02 Sat by Pulse Oximetry 96 94 L 95 Oxygen Delivery Method Room Air 05/29/23 02:00 05/29/23 02:33 Temperature 98.3 F Temperature Source Oral Pulse Rate 84 74 Pulse Rate [Left] Respiratory Rate 16 14 Blood Pressure 133/84 126/78 Blood Pressure [Right Arm] Blood Pressure Mean 90 Blood Pressure Mean [Right Arm] 02 Sat by Pulse Oximetry 96 Oxygen Delivery Method Room Air Room Air Lab Data Lab Results 05/28/23 21:51: WBC 15.2 H, RBC 5.11, Hgb 16.5, Hct 47.7, MCV 93.3, MCH 32.3 H, MCHC 34.6, RDW 13.0, Plt Count 331, MPV 7.8, Neut % (Auto) 73.8, Lymph % (Auto) 19.9, [place] % (Auto) 3.8, Eos % (Auto) 1.8, Baso % (Auto) 0.7, Neut # (Auto) 11.2 H, Lymph # (Auto) 3.0, [place] # (Auto) 0.6, Eos # (Auto) 0.3, Baso # (Auto) 0.1, Total Counted 100, Neutrophils % (Manual) 77 H, Lymphocytes % (Manual) 19, Monocytes % (Manual) 2, Eosinophils % (Manual) 2, Platelet Estimate Normal, RBC Morphology Normal, Sodium 136, Potassium 3.1 L, Chloride 106, Carbon Dioxide 21 L, Anion Gap 12.1, BUN 14, Creatinine 0.80, Estimated Creat Clear 139, Estimated GFR 99, Est GFR ( Amer) 120, Glucose 119 H, Calcium 9.7, Total Bilirubin 1.0, AST 38, ALT 39, Alkaline Phosphatase 101, Total Protein 7.8, Albumin 4.5, G lobulin 3.3 H, Albumin/Globulin Ratio 1.4, Lipase 120 05/28/23 22:14: VBG Lactic Acid 3.2 H 05/29/23 01:53: Lactate 1.0 Orders (Tests/Meds): ED MEDICATIONS Discontinued Medications Generic Name Dose Route Start Last Admin Trade Name Freq PRN Reason Stop Dose Admin Acetaminophen 1,000 mg 05/28/23 22:13 05/28/23 23:02 Acetaminophen 500mg Tab PO 05/28/23 22:14 1,000 mg ONCE ONE Administration Belladonna Alkaloids 60 ml 05/28/23 23:25 05/28/23 23:36 Belladonna Alkaloids 60 Ml Ml PO 05/28/23 23:26 60 ml ONCE ONE Administration Diphenhydramine HCl 25 mg 05/29/23 00:49 05/29/23 00:52 Diphenhydramine 50mg/Ml Vial IV 05/29/23 00:50 25 mg ONCE ONE Administration Droperidol 2.5 mg 05/28/23 23:31 05/28/23 23:38 Droperidol 5mg/2ml Vial IV 05/28/23 23:32 2.5 mg ONCE ONE Administration Lactated Ringer's 1,000 mls @ 999 mls/hr 05/28/23 22:07 05/28/23 22:09 Lactated Ringer's 1000 Ml Bag IV 05/28/23 23:07 999 mls/hr .Q1H1M ONE Administration Lactated Ringer's 1,000 mls @ 999 mls/hr 05/28/23 23:18 05/28/23 23:22 Lactated Ringer's 1000 Ml Bag IV 05/29/23 00:18 999 mls/hr .Q1H1M ONE Administration Potassium Chloride/Water 100 mls @ 100 mls/hr 05/28/23 23:30 05/29/23 01:47 Potassium Chloride 10meq/100ml Ivpb IV 05/29/23 02:29 Not Given Q1H ARPIT Iopamidol 75 ml 05/28/23 22:53 05/28/23 22:54 Iopamidol-370 (76%);100ml Bottle IV 05/28/23 22:54 75 ml ONCE ONE Administration Ondansetron HCl 4 mg 05/28/23 22:13 05/28/23 22:34 Ondansetron 4mg/2ml Vial IV 05/28/23 22:14 4 mg ONCE ONE Administration Sodium Chloride 10 ml 05/28/23 22:53 05/28/23 22:54 Sodium Chloride 0.9% 10ml Syr (Rad Only) IV 06/27/23 22:52 10 ml NEEDED PRN Administration Maintain IV Site ORDERS Category Date Time Status CT abdomen pelvis w con Stat Cat Scan 05/28/23 22:13 Completed CBC [Complete Blood Count Auto Diff] Stat Lab 05/28/23 21:51 Completed CMP [Comprehensive Metabolic Panel] Stat Lab 05/28/23 21:51 Completed Lactate Venous Stat Lab 05/28/23 22:14 Completed Lactic Acid Follow Up (RFLX 1) Stat Lab 05/29/23 01:53 Completed Lipase Stat Lab 05/28/23 21:51 Completed Blood Culture Stat Micro 05/28/23 23:08 Received Medical Decision Narrative: Immediately upon arrival patient was found to be weak and lethargic. Vitals were concerning for hypothermia to 96 ?F rectally so patient was transferred to a critical care room. During that process he was unable to stand due to generalized weakness. He also had vomiting, severe generalized abdominal pain, so presentation is concerning for sepsis, possibly from intra-abdominal source such as UTI, diverticulitis, intussusception, appendicitis, among others. For this reason obtained CT abdomen pelvis with IV contrast, labs, and provided LR bolus and active rewarming with bear hugger. On reassessment, patient's comfort, nausea, and hypothermia had improved. Labs independently reviewed and interpreted showed mild leukocytosis, mild lactic acidosis with lactate of 3.2, mild hypokalemia which I repleted, normal LFTs and lipase, no significant abnormalities to explain his abdominal discomfort. CT I independently reviewed and interpreted showed no emergent causes of his abdominal pain, no bowel obstruction or volvulus or cholecystitis or cholelithiasis, no overt signs of mesenteric ischemia though arterial phase is limited. No sources of an intra- abdominal infection or other emergent causes of abdominal pain on my read, however advised the oncoming physician to wait for the radiologist read given patient's concerning clinical presentation when he first arrived. At time of transition of care it is not clear what caused patient's abdominal pain, vomiting, generalized weakness, hypothermia. Discussed with oncoming provider that at this time his symptoms are not controlled well enough to discharge however it is possible the symptoms may be a manifestation of his recurrent episodic abdominal pain and vomiting or an intra-abdominal emergency that the radiologist may identify on CT. Jesica BIGGS: I assumed care of the patient at the time of handoff from the prior provider. Patient was given droperidol prior to handoff. He became somewhat somnolent and required a brief period of nasal cannula oxygen for hypopnea. About an hour after Benadryl administration he also developed a generalized urticarial rash, no intraoral swelling or redness, no wheezing, patient reported that the rash was itchy. He has never had any issues with rashes before, his only other known allergy is morphine. He is unclear whether or not this rash is related to the droperidol. Patient was given 25 mg Benadryl with mild improvement in the rash and resolution of the itching. Repeat lactate was obtained and was within normal limits. I had extensive and repeated discussions with both patient and patient's family regarding his presentation. They report that his presentation is consistent with prior episodes, though much more severe in nature. They have had an extensive repeated workup with a GI team in the past for these issues. Currently the patient reports no abdominal pain, no chest pain shortness of breath or any other symptoms, reports he feels essentially back to normal. The underlying etiology of this patient's abdominal attacks are unclear, potentially abdominal migraines. Regardless, given normal CT, unremarkable labs, stable vital signs and symptomatic resolution, I do not have an indication for admission and feel that he will be appropriate for outpatient follow-up. Family is in agreement and patient was able to ambulate, p.o., use the restroom without difficulty. He was discharged in stable condition with instructions take Benadryl as needed for urticarial rash and given instructions to monitor for signs of more severe allergic reaction. Critical Care <Luisana De Leon MD - Last Filed: 05/28/23 23:31> Critical Care Time Critical Care Time: No
[2023-05-28 22:28] LABS: Basophils # 0.1 K/mm3 (0-0.2); Basophils % 0.7 % (0.1-2.0); Chloride 106 mmol/L (98-107); Eosinophils # 0.3 K/mm3 (0.0-0.4); Eosinophils % 1.8 % (0.1-12.0); Hematocrit 47.7 % (42.0-52.0); Hemoglobin 16.5 g/dL (14.1-18.0); Lymphocytes % 19.9 % (10-50); Mean Corpuscular HGB Conc 34.6 g/dL (31.8-35.4); Mean Corpuscular Hemoglobin 32.3 pg (27.0-31.2); Mean Corpuscular Volume 93.3 fl (80-94); Mean Platelet Volume 7.8 fl (7.4-10.4); Monocytes # 0.6 K/mm3 (0.1-1.0); Monocytes % 3.8 % (1.7-9.3); Neutrophils # 11.2 K/mm3 (1.8-7.8); Neutrophils % 73.8 % (37.0-80.0); Platelet Count 331 K/mm3 (142-424); Potassium 3.1 mmoL/L (3.5-5.1); Red Blood Count 5.11 M/mm3 (4.60-6.20); Sodium 136 mmol/L (136-145); White Blood Count 15.2 K/mm3 (4.8-10.8)
[2023-05-28 22:30] LABS: Blood Urea Nitrogen 14 mg/dl (9-20); Creatinine Clearance Estimated 139 mL/min (50-200); Estimated Glomerular Filt Rate 99 ml/min (>60); GFR (African American) 120 ML/MIN (>60)
[2023-05-28 22:31] LABS: Alanine Aminotransferase 39 U/L (12-78); Albumin Level 4.5 g/dl (3.5-5.0); Albumin/Globulin Ratio 1.4 (1.1-1.8); Alkaline Phosphatase 101 U/L (38-126); Anion Gap 12.1 mEq/L (5-15); Aspartate Amino Transferase 38 U/L (17-59); Calcium 9.7 mg/dl (8.4-10.2); Carbon Dioxide 21 mmol/L (22.0-30.0); Globulin 3.3 g/dL (1.3-3.2); Glucose 119 mg/dl (74-100); Lipase 120 U/L (23-300); MANUAL DIFFERENTIAL MANUAL DIFFERENTIAL (MANUAL DIFF); Total Protein,Serum 7.8 g/dl (6.3-8.2)
[2023-05-28] MEDS: ONDANSETRON 4MG/2ML VIAL 4 MG IV (22:34)
[2023-05-28 22:47] LABS: Eosinophils % 2 % (0-3); Lymphocytes % 19 % (10-50); Monocytes % 2 % (2-9); Neutrophils % 77 % (42-76); Platelet Estimate Normal; RBC Morphology Normal; Total Cells Counted 100
[2023-05-28] MEDS: IOPAMIDOL-370 (76%);100ML BOTTLE 75 ML IV (22:54)
[2023-05-28] MEDS: SODIUM CHLORIDE 0.9% 10ML SYR (RAD ONLY) 10 ML IV (22:54)
[2023-05-28] MEDS: ACETAMINOPHEN 500MG TAB 1000 MG PO (23:02)
[2023-05-28 23:03] LABS: Lactate Venous 3.2 mmol/L (0.4-2.0)
[2023-05-28] MEDS: BELLADONNA ALKALOIDS 60 ML ML PO (23:36)
[2023-05-28] MEDS: droPERidol 5MG/2ML VIAL 2.5 MG IV (23:38)
[2023-05-28] MEDS: KCl 10mEq/100ml 100 ML 100 MEQ IV (23:40)
[2023-05-29] VITALS: PULSE 63; RESP 8; O2SAT 91
[2023-05-29 00:16] VITALS: BP 129/79; PULSE 80; RESP 12; RESP 19; O2SAT 91; O2SAT 96
--- NOTE | 2023-05-29 00:24 | PC.NURSE ---
Pt is resting at this time.
[2023-05-29] MEDS: KCl 10mEq/100ml 100 ML 100 MEQ IV (00:37)
[2023-05-29] MEDS: diphenhydrAMINE 50MG/ML VIAL 25 MG IV (00:52)
[2023-05-29 01:45] VITALS: BP 126/86; PULSE 85; PULSE 96; RESP 12; RESP 17; TEMP 36.6; O2SAT 94; O2SAT 95
--- NOTE | 2023-05-29 01:47 | PC.NURSE ---
At approx 1 am, pt's exited the room to advise this RN of a rash that was all over the pt's arms. Upon entering the room, the rash was located on both arms, torso, abdominal area, pelvic area, underarms and neck. MD notified and Benadryl administered.
[2023-05-29 01:57] LABS: Reflex Lactic Add Lactic Reflex
[2023-05-29 02:00] VITALS: BP 133/84; PULSE 84; RESP 16; O2SAT 96
[2023-05-29 02:33] VITALS: BP 126/78; PULSE 74; RESP 14; TEMP 36.8; O2SAT 98
--- NOTE | 2023-06-02 01:31 | PC.NURSE ---
no growth noted on culture prelim reports; NNO pending final report.
== END 2023-05-29 02:37 | disposition home or self-care (01) ==
PROVIDERS: Emergency Medicine; Emergency Provider Emergency Medicine; PCP Internal Medicine
DX: R10.84 Generalized abdominal pain (principal); E87.6 Hypokalemia; R74.02 Elevation of levels of lactic acid dehydrogenase [LDH]; I49.3 Ventricular premature depolarization; R11.2 Nausea with vomiting, unspecified; D72.829 Elevated white blood cell count, unspecified; L50.0 Allergic urticaria; I10 Essential (primary) hypertension; K21.9 Gastro-esophageal reflux disease without esophagitis; R53.83 Other fatigue; R68.0 Hypothermia, not associated with low environmental temperature
CPT/HCPCS: 74177; 80053; 83605; 83690; 85007; 85025; 87040; 93005; 96361; 96365; 96375; 99285; J1790; J2405; Q9967

== ENCOUNTER 2023-06-11 10:43 | Outpatient (CLI) | payer BC, SELFPAY ==
[2023-06-11 11:21] LABS: Chloride 106 mmol/L (98-107)
[2023-06-11 11:22] LABS: Potassium 3.8 mmoL/L (3.5-5.1); Sodium 142 mmol/L (136-145)
[2023-06-11 11:24] LABS: Alanine Aminotransferase 25 U/L (12-78); Albumin Level 4.3 g/dl (3.5-5.0); Albumin/Globulin Ratio 1.6 (1.1-1.8); Alkaline Phosphatase 81 U/L (38-126); Anion Gap 6.8 mEq/L (5-15); Aspartate Amino Transferase 25 U/L (17-59); Bilirubin,Total 0.7 mg/dl (0.2-1.3); Blood Urea Nitrogen 12 mg/dl (9-20); Carbon Dioxide 33 mmol/L (22.0-30.0); Estimated Glomerular Filt Rate 87 ml/min (>60); GFR (African American) 105 ML/MIN (>60); Globulin 2.7 g/dL (1.3-3.2)
[2023-06-11 11:25] LABS: Calcium 9.5 mg/dl (8.4-10.2); Glucose 96 mg/dl (74-100)
== END 2023-06-11 23:59 | disposition home or self-care (01) ==
LOC: LAB 10:44
PROVIDERS: PCP Internal Medicine; Visit Provider Physician Assistant
DX: B35.1 Tinea unguium (principal)
CPT/HCPCS: 36415; 80053

== ENCOUNTER 2023-10-02 15:00 | Outpatient (CLI) | payer SELFPAY | END 2023-10-02 23:59 | disposition home or self-care (01) | LOC: LAB.DROPOF 10-23 14:17 | PROVIDERS: PCP Specialist; Visit Provider Specialist | DX: E80.21 Acute intermittent (hepatic) porphyria (principal); K55.1 Chronic vascular disorders of intestine | CPT/HCPCS: 84120 ==

== ENCOUNTER 2023-10-30 10:33 | Outpatient (CLI) | payer BC, SELFPAY ==
[2023-10-30 10:44] VITALS: BMI 30.5
--- NOTE | 2023-10-30 11:10 | PC.NURSE ---
1055-blood drawn from right AC using butterfly needle to check labs, per Dr Hernandez. Specimen cup and hat sent home with pt with instructions to return stool specimen for fecal porphyrins.
== END 2023-10-30 11:00 | disposition home or self-care (01) ==
LOC: INF 10:41
PROVIDERS: PCP Internal Medicine; Visit Provider Internal Medicine Medical Oncology
DX: K63.8219 Small intestinal bacterial overgrowth, unspecified (principal)
CPT/HCPCS: 36415; 84120

== ENCOUNTER 2023-11-02 10:19 | Outpatient (CLI) | payer BC, SELFPAY | END 2023-11-02 23:59 | disposition home or self-care (01) | LOC: LAB.DROPOF 10:20 | PROVIDERS: Visit Provider Internal Medicine Medical Oncology | DX: Z02.9 Encounter for administrative examinations, unspecified (principal) ==

== ENCOUNTER 2023-11-17 11:19 | Outpatient (CLI) | payer BC, SELFPAY | END 2023-11-17 23:59 | disposition home or self-care (01) | LOC: LAB 11:20 | PROVIDERS: PCP Internal Medicine; Visit Provider Internal Medicine Medical Oncology | DX: E80.21 Acute intermittent (hepatic) porphyria (principal); K55.1 Chronic vascular disorders of intestine | CPT/HCPCS: 36415; 84120 ==

== ENCOUNTER 2023-11-19 12:27 | Outpatient (CLI) | payer BC, SELFPAY | END 2023-11-19 23:59 | disposition home or self-care (01) | PROVIDERS: PCP Internal Medicine; Visit Provider Internal Medicine Medical Oncology | DX: E80.21 Acute intermittent (hepatic) porphyria (principal); K55.1 Chronic vascular disorders of intestine | CPT/HCPCS: 36415; 84120 ==

== ENCOUNTER 2023-12-03 11:12 | Outpatient (CLI) | payer BC, SELFPAY | END 2023-12-03 23:59 | disposition home or self-care (01) | LOC: LAB 11:14 | PROVIDERS: PCP Internal Medicine; Visit Provider Internal Medicine Medical Oncology | DX: Z02.9 Encounter for administrative examinations, unspecified (principal) ==

== ENCOUNTER 2025-01-19 14:16 | Outpatient (CLI) | payer BC, SELFPAY ==
--- NOTE | 2025-01-19 14:18 | XR_ITS ---
FINAL REPORT CLINICAL HISTORY: Left hip pain FINDINGS: LEFT HIP/PELVIS Three views were obtained. There is no fracture or dislocation. The joint spaces appear normal. No soft tissue abnormality is identified. IMPRESSION: No acute process. Reviewed, Interpreted and Dictated by Sedrick Rdz MD Transcribed by Naina Rivera Authenticated and [facility]
== END 2025-01-19 23:59 | disposition home or self-care (01) ==
LOC: RAD 14:16
PROVIDERS: PCP Internal Medicine; Visit Provider Internal Medicine
DX: M25.552 Pain in left hip (principal)
CPT/HCPCS: 73502